=== PATIENT | male | born 1965 | race Caucasian/White ===

== ENCOUNTER 2017-05-09 16:49 | Emergency (ER) | payer MEDICAID ==
[2017-05-09 16:58] VITALS: RESP 16
--- NOTE | 2017-05-09 17:48 | EDPHY ---
H & P Stated Complaint: cut lip and hit jaw in [facility] shower HPI/ROS: CHIEF COMPLAINT: Lip laceration, fall HISTORY OF PRESENT ILLNESS: Patient presents in custody of [facility]. He says he was in the shower when he slipped. He says he struck his right side of his face and mandible on the tile. He sustained a laceration to the upper lip. He has mild right mandibular pain. No trismus. No dental pain and fractures. No malocclusion of the teeth. No difficulty opening his mouth. No headache. No loss of conscious. No neck pain. No injury elsewhere. Occurred less than 1 hour ago. Severe pain. Were movement palpation. No radiating pain. No other associated complaints or modifying factors. TIME OF INJURY: 1 hour prior to arrival TETANUS STATUS: Seven years ago MEDICAL/SURGICAL/SOCIAL HISTORY: Reviewed REVIEW OF SYSTEMS: Ten systems reviewed and are negative unless otherwise noted in the HPI EXAMINATION General Appearance: Alert, no distress Head: normocephalic, swelling laceration of the upper lip. No Viy sign. No raccoon eyes. No hematoma of the scalp. ENT: 2.5 cm laceration of the upper lip, full-thickness through the vermilion border. No pulsatile bleeding. No foreign body. No laceration of the frenulum. Airway is widely patent. Cardiovascular: Pulses normal throughout. Brisk cap refill Neurological: GCS 15. A&O, sensory symmetric, strength symmetric Skin: Warm and dry, no rash. Lip laceration as noted above Extremities: Nontender, no pedal edema DIFFERENTIAL DIAGNOSES: Including but not limited to lip laceration, complex lip laceration, laceration with vermilion border. Closed head injury MDM: 5:15 p.m. Complex laceration of the upper lip with involvement of the vermilion border. Closed head injury with mild right-sided mandibular pain. No malocclusion. No trismus. No evidence of fracture. No open sore, low lesion or laceration of the mucosa of the cheek. Laceration has been blocked. Proceed with irrigation closure. 5:45 p.m. Complex lip laceration that has been suture.. There is excellent approximation of the vermilion border. No trauma to the oral mucosa. No dental fracture. No evidence of mandibular fracture by history examination. Wound care discussed with the patient and the officers from the [facility]. Discharged back to their custody. Return here in 7 days for suture removal. PROCEDURE: Laceration repair Consent: Verbal Location: Upper lip involving the vermilion border Length of repair: 2.5 cm Complexity: Complex Layer involvement: Full-thickness Anesthesia: Infraorbital block. 1% lidocaine, 0.5% Marcaine. 4 mL as of each Irrigation: Extensive Debridement: None Procedure description: Following good anesthesia, the wound was copiously irrigated. Wound bed was explored and there is no foreign body noted. Wound borders were approximated well with good hemostasis. Tolerated well without complication. Suture/Staple material: 6-0 Prolene for cutaneous layer: 6 simple interrupted sutures 5-0 vicryl for subcutaneous layer: 1 simple interrupted suture and 5 running sutures. Wound care: Routine as discussed Suture/Staple removal: 7 Days ED Precautions: Worsening pain. Erythema, edema, cyanosis, pallor, paresthesia or anesthesia. Source: Patient - Personal History Current Tetanus/Diphtheria Vaccine: Yes Current Tetanus Diphtheria and Acellular Pertussis (TDAP): Yes - Medical/Surgical History Hx Asthma: No Hx Chronic Respiratory Disease: No Hx Diabetes: No Hx Cardiac Disease: No Hx Renal Disease: No Hx Cirrhosis: No Hx Alcoholism: No Hx HIV/AIDS: No Hx Splenectomy or Spleen Trauma: No Other PMH: pmh:htn. psh:knee surgery, left foot, - Social History Smoking Status: Never smoked Constitutional: Initial Vital Signs Temperature (C) 97.7 F 05/09/17 16:56 Heart Rate 75 05/09/17 16:56 Respiratory Rate 16 05/09/17 16:56 Blood Pressure 153/98 H 05/09/17 16:56 O2 Sat (%) 95 05/09/17 16:56 O2 Delivery Mode Room Air Allergies/Adverse Reactions: No Known Allergies Allergy (Unverified 05/09/17 16:54) Home Medications: Medication Instructions Recorded Mayuri Allergy 05/09/17 Hydrochlorothiazide 05/09/17 Lisinopril 05/09/17 Motrin (*) 05/09/17 Prilosec Otc 05/09/17 Departure - Departure Disposition: Law Enforcement/Court/Group Home Clinical Impression: Laceration of vermilion border of upper lip Qualifiers: Encounter type: initial encounter Qualified Code(s): S01.511A - Laceration without foreign body of lip, initial encounter Complicated laceration of lip Qualifiers: Encounter type: initial encounter Qualified Code(s): S01.511A - Laceration without foreign body of lip, initial encounter Condition: Good Instructions: Care For Your Stitches (ED), Laceration (ED), Care For Your Absorbable Stitches (ED) Additional Instructions: 1. Ibuprofen 800 mg every 8 hours as needed for pain and swelling 2. Apply ice to the affected area 20 minutes on, 20 minutes off for the next 1- 2 days 3. Rinse her mouth with warm water with salt and it every morning, every evening and after each meal 4. ED precautions for worsening pain, purulence, fever, difficulty opening your mouth Referrals: Patient,NotPresent [Primary Care Provider] - As per Instructions Physician,Emergency Dept, [Medical Doctor] - As per Instructions
[2017-05-09 18:03] VITALS: BP 155/74; PULSE 76; TEMP 98.2; O2SAT 98
== END 2017-05-09 18:06 ==
LOC: EEVIPCON 16:49
PROC: 0CQ0XZZ Repair Upper Lip, External Approach (ICD-10-PCS; principal; 2017-05-09)
DX: S01.511A Laceration without foreign body of lip, initial encounter (principal); S09.90XA Unspecified injury of head, initial encounter; W01.198A Fall on same level from slipping, tripping and stumbling with subsequent striking against other object, initial encounter; Y92.002 Bathroom of unspecified non-institutional (private) residence as the place of occurrence of the external cause; Y93.E1 Activity, personal bathing and showering